=== PATIENT | female | born 1945 | race Caucasian/White ===

== ENCOUNTER 2018-06-25 12:14 | Emergency (ER) | payer BC, OTHER ==
[2018-06-25 12:49] LABS: PLATELET COUNT 374 10^3/uL (150-400)
--- NOTE | 2018-06-25 12:50 | EDPHY ---
H & P Stated Complaint: tachycardia/ ?abnormal mri/heart issues Time Seen by Provider: 06/25/18 12:15 - Personal History Current Tetanus Diphtheria and Acellular Pertussis (TDAP): Yes - Medical/Surgical History Hx Asthma: No Hx Chronic Respiratory Disease: No Hx Diabetes: No Hx Cardiac Disease: No Hx Renal Disease: No Hx Cirrhosis: No Hx Alcoholism: No Hx HIV/AIDS: No Hx Splenectomy or Spleen Trauma: No Other PMH: denies - Social History Smoking Status: Never smoked Constitutional: Initial Vital Signs Temperature (C) 36.8 C 06/25/18 12:19 Heart Rate 124 H 06/25/18 12:19 Respiratory Rate 18 06/25/18 12:19 Blood Pressure 116/89 H 06/25/18 12:19 O2 Sat (%) 96 06/25/18 12:19 O2 Delivery Mode Room Air Allergies/Adverse Reactions: Penicillins Allergy (Verified 06/25/18 12:17) Home Medications: Medication Instructions Recorded Ativan 06/25/18 Klonopin 06/25/18 Lexapro 06/25/18 Medical Decision Making ED Course/Re-evaluation: CHIEF COMPLAINT: Rapid heart rate, stopped taking Lexapro HISTORY OF PRESENT ILLNESS: The patient is a 72 y/o female with a history of depressions complaining of a rapid heart rate and abnormal labs. the patient has been on numerous medications for depression for 30 years. Four days ago stopped 10mg Lexapro "cold turkey" as she doesn't think it is working. After talking with her PCP, Dr. Lucas, she was advised to present to the emergency department. No fever, headache, body aches, lightheadedness, chest pain, heart palpitations, shortness of breath, cough, abdominal pain, urinary or bowel complaints, numbness, paresthesias. REVIEW OF SYSTEMS: A 10 point review of systems was performed and is negative with the exception of the elements mentioned in the history of present illness. PHYSICAL EXAM: HR, BP, O2 Sat, RR. Temp noted General Appearance: Alert, well hydrated, appropriate, and non-toxic appearing. Head: Atraumatic without scalp tenderness or obvious injury Eyes: Pupils equal, round, reactive to light and accommodation, EOMI, no trauma , no injection. Ears: Clear bilaterally, no perforation, normal landmarks Nose: Atraumatic, no rhinorrhea, clear. Throat: There is no erythema or exudates, no lesions, normal tonsils, mucus membranes moist. Neck: Supple, 2+ carotid upstroke, nontender, no lymphadenopathy. Respiratory: No retractions, no distress, no wheezes, and no accessory muscle use. Lungs are clear to auscultation bilaterally. Cardiovascular: Regular rate and rhythm, no murmurs, rubs, or gallops. Bilateral carotid, radial, dorsalis pedis, and posterior tibial pulses intact. Good capillary refill all extremities. Gastrointestinal: Abdomen is soft, nontender, non-distended, no masses, no rebound, no guarding, no peritoneal signs. Musculoskeletal: Normal active ROM of all extremities, atraumatic. Neurological: Alert, appropriate, and interactive. The patient has normal DTRs and non-focal cranial nerves, motor, sensory, and cerebellar exam. Skin: No rashes, good turgor, no nodules on palpation. Past medical history: Depression Past surgical history: Denies Family history: Denies Social history: Lives in [place], single, retired DIAGNOSTICS/PROCEDURES/CRITICAL CARE TIME: EKG: The 12 lead EKG was interpreted by myself as borderline sinus tachycardia with a rate of 107. See hard copy and/or "tracemaster" electronic copy for interpretation. Chest CTA: No acute findings. DIFFERENTIAL DIAGNOSIS: The differential diagnosis for the patient's narrow complex tachycardia included but was not limited to various causes of sinus tachycardia such as dehydration and medicines, SVT, atrial flutter, atrial fibrillation, pulmonary causes. MEDICAL DECISION MAKING: The patient is a 72 y/o female with a history of depression presenting for a rapid heart rate and abnormal labs. Four days ago stopped 10mg Lexapro "cold turkey" as she doesn't think it is working. I suspect her tachycardia is due to stopping her SSRI. Labs and EKG ordered. 1233: I interpreted patient's EKG as borderline sinus tachycardia with a rate of 107. 1330: Patient's labs reveal and elevated d-dimer; chest CTA ordered. 1426: I spoke with Dr. More, radiologist, who reports that the patient has no acute findings on the chest CTA. 1430: Reassessed patient and discussed imaging and laboratory findings. Return precautions provided; patient is comfortable with this plan. - Data Points Laboratory Results: Laboratory Results 06/25/18 12:32 06/25/18 12:32 06/25/18 06/25/18 06/25/18 12:35 12:32 12:32 WBC RBC Hgb Hct MCV MCH MCHC RDW Plt Count MPV Neut % (Auto) Lymph % (Auto) [place] % (Auto) Eos % (Auto) Baso % (Auto) Nucleat RBC Rel Count Absolute Neuts (auto) Absolute Lymphs (auto) Absolute Monos (auto) Absolute Eos (auto) Absolute Basos (auto) Absolute Nucleated RBC Immature Gran % Immature Gran # D-Dimer 0.81 ug/mLFEU H ug/mLFEU (0.00-0.50) Sodium 136 mEq/L mEq/L (135-145) Potassium 3.6 mEq/L mEq/L (3.5-5.2) Chloride 101 mEq/L mEq/L (97-110) Carbon Dioxide 17 mEq/l L mEq/l (22-31) Anion Gap 18 mEq/L H mEq/L (6-14) BUN 21 mg/dL mg/dL (7-23) Creatinine 0.6 mg/dL mg/dL (0.6-1.0) Estimated GFR > 60 Glucose 172 mg/dL H mg/dL (70-100) Calcium 9.9 mg/dL mg/dL (8.5-10.4) POC Troponin I 0.00 ng/mL ng/mL (0.00-0.08) 06/25/18 12:32 WBC 9.92 10^3/uL H 10^3/uL (3.80-9.50) RBC 5.45 10^6/uL H 10^6/uL (4.18-5.33) Hgb 16.1 g/dL g/dL (12.6-16.3) Hct 48.3 % H % (38.0-47.0) MCV 88.6 fL fL (81.5-99.8) MCH 29.5 pg pg (27.9-34.1) MCHC 33.3 g/dL g/dL (32.4-36.7) RDW 11.7 % % (11.5-15.2) Plt Count 374 10^3/uL 10^3/uL (150-400) MPV 9.5 fL fL (8.7-11.7) Neut % (Auto) 69.3 % % (39.3-74.2) Lymph % (Auto) 20.2 % % (15.0-45.0) [place] % (Auto) 9.6 % % (4.5-13.0) Eos % (Auto) 0.4 % L % (0.6-7.6) Baso % (Auto) 0.2 % L % (0.3-1.7) Nucleat RBC Rel Count 0.0 % % (0.0-0.2) Absolute Neuts (auto) 6.88 10^3/uL H 10^3/uL (1.70-6.50) Absolute Lymphs (auto) 2.00 10^3/uL 10^3/uL (1.00-3.00) Absolute Monos (auto) 0.95 10^3/uL H 10^3/uL (0.30-0.80) Absolute Eos (auto) 0.04 10^3/uL 10^3/uL (0.03-0.40) Absolute Basos (auto) 0.02 10^3/uL 10^3/uL (0.02-0.10) Absolute Nucleated RBC 0.00 10^3/uL 10^3/uL (0-0.01) Immature Gran % 0.3 % % (0.0-1.1) Immature Gran # 0.03 10^3/uL 10^3/uL (0.00-0.10) D-Dimer Sodium Potassium Chloride Carbon Dioxide Anion Gap BUN Creatinine Estimated GFR Glucose Calcium POC Troponin I Point of Care Test Results: Chemistry 06/25/18 12:35 POC Troponin I 0.00 ng/mL ng/mL (0.00-0.08) Departure - Departure Disposition: Home, Routine, Self-Care Clinical Impression: SSRI Withdrawal, Tachycardia Condition: Good Instructions: Tachycardia (ED) Additional Instructions: 1. Follow-up with your primary doctor within 72 hours. 2. Return to the Emergency Department for fever, chest pain, shortness of breath , increasing pain or other worsening of condition. Referrals: Godfrey Lucas MD [Primary Care Provider] - As per Instructions Report Scribed for: Reginald Chapa Report Scribed by: Dulce Flores Date of Report: 06/25/18 Time of Report: 13:01
[2018-06-25] MEDS ORDERED: IOPAMIDOL (ISOVUE 370) 100 ML BTL IV ONE (13:37)
--- NOTE | 2018-06-25 13:44 | CPEKG ---
Test Reason : OPEN Blood Pressure : / mmHG Vent. Rate : 107 BPM Atrial Rate : 106 BPM P-R Int : 149 ms QRS Dur : 087 ms QT Int : 354 ms P-R-T Axes : 076 070 057 degrees QTc Int : 473 ms Sinus tachycardia Low voltage, extremity leads Abnormal R-wave progression, early transition Nonspecific repol abnormality, diffuse leads Confirmed by Reginald Chapa ([id number] on 06/25/2018 1:44:04 PM Referred By: Reginald Chapa Confirmed By:Reginald Chapa
[2018-06-25 14:29] VITALS: BP 113/77
== END 2018-06-25 14:39 | disposition home or self-care (01) ==
DX: R00.0 Tachycardia, unspecified (principal); F19.930 Other psychoactive substance use, unspecified with withdrawal, uncomplicated; F32.9 Major depressive disorder, single episode, unspecified
CPT/HCPCS: 71275; 93005; 99285; Q9967; 84484-ER